=== PATIENT | female | born 1935 | race Asian ===

== ENCOUNTER 2021-11-22 14:42 | Outpatient (REF) | payer OTHER, MEDICAID, SELFPAY ==
--- NOTE | 2021-11-27 09:57 | MHC.AU.ANH ---
Adult Audiological Evaluation Date of Visit: 11/22/21 Reason for Appointment: History of hearing loss. Patient questions if there has been a change in hearing. She has been using a pair of Phonak Bolero [id number] obtained from another clinic. Medical History: Medical History: History of breast cancer, hypertension Otoscopy: Right Ear: Unremarkable Left Ear: Unremarkable Tympanometry: Tympanometry performed due to: To assess integrity of the middle ear system Right Ear: Normal Middle Ear System (Type A) Left Ear: Normal Middle Ear System (Type A) Hearing Evaluation: Transducer(s) Used: Insert Earphones Method: Conventional Audiometry Stimuli Used: Pure Tones Right Ear: Description of Hearing: Moderate to severe sensorineural hearing loss Left Ear: Description of Hearing: Moderate to severe sensorineural hearing loss Speech Detection Threshold (SDT): Right Ear: 50 dBHL Left Ear: 50 dBHL Speech Recognition Threshold (SRT): Could not test- language barrier Word Discrimination: Could not test- language barrier Recommendations: Audiological re-evaluation in one year. At this time, the patient's hearing aid benefits cannot be used at our clinic. It is recommended they call the insurance provider to find participating clinics in the area. Diagnosis: Primary Diagnosis: H90.3 Bilateral Sensorineural Hearing Loss Signature: Provider: Celina Garcia, CCC-A
== END 2021-11-22 14:43 | disposition home or self-care (01) ==
LOC: HO.SH 14:42
PROVIDERS: Visit Provider Internal Medicine
DX: Z01.118 Encounter for examination of ears and hearing with other abnormal findings (principal); H90.3 Sensorineural hearing loss, bilateral
CPT/HCPCS: 92553; 92555; 92567

== ENCOUNTER 2023-08-28 15:52 | Inpatient (IN) | payer OTHER, SELFPAY ==
--- NOTE | ~2023-08-28 | XR_ITS ---
EXAMINATION: XR CHEST CLINICAL INFORMATION: Cough COMPARISON: Previous chest x-ray 08/28/2023 TECHNIQUE: Frontal view of the chest was obtained. FINDINGS: The cardiac and mediastinal contours are stable. The right hemidiaphragm is elevated similar to prior exams. There are increased central bronchovascular markings questionable for airways disease versus mild pulmonary edema. No lobar pneumonia. No pleural effusion or pneumothorax. Surgical clips in the right lateral breast/axilla. XR/XR chest 1V IMPRESSION: Increased central bronchovascular markings questionable for airways disease versus mild pulmonary edema.
--- NOTE | ~2023-08-28 | XR_ITS ---
EXAMINATION: XR CHEST CLINICAL INFORMATION: Shortness of breath COMPARISON: Chest x-ray March 22, 2017. CT chest March 23, 2017 TECHNIQUE: Frontal portable view of the chest was obtained. 1740 hours FINDINGS: Lung volume low causing prominence of the bronchovascular markings. No focal consolidation. No pleural effusion or pneumothorax. Heart size is normal. There are calcifications of aorta. Surgical clips in the right axilla. Multilevel degenerative spondylosis spine. XR/XR chest 1V IMPRESSION: Low lung volume. No acute abnormality of chest.
[2023-08-28 16:02] VITALS: BP 100/75; BP 120/69; PULSE 80; PULSE 86; RESP 28; TEMP 36.9; O2SAT 97; O2SAT 99
[2023-08-28 16:17] VITALS: BP 100/75; PULSE 70; RESP 28; TEMP 37.1; O2SAT 97
--- NOTE | 2023-08-28 16:55 | ECG_ITS ---
Test Reason : SOB Blood Pressure : / mmHG Vent. Rate : 080 BPM Atrial Rate : 080 BPM P-R Int : 128 ms QRS Dur : 062 ms QT Int : 362 ms P-R-T Axes : 014 038 007 degrees QTc Int : 417 ms Normal sinus rhythm Nonspecific T wave abnormality Abnormal ECG When compared with ECG of 22-MAR-2017 19:59, Nonspecific T wave abnormality now evident in Anterior leads Referred By: Ant Howell Electronically Signed By:Alon Gore
--- NOTE | 2023-08-28 16:59 | PC.NURSE ---
Pt presents for wheezing and productive cough x5 days. Pt was seen at PCP ([facility]) earlier today and sent to ED for noted O2 sats at 88-92 % on RA. Presents with audible wheezing and productive cough. O2 sat stable at 97% on 2L O2. Afebrile and BP/P is stable. Pt is Italian speaking only with family at beside. Pt is stable at this time and awaiting disposition.
[2023-08-28] MEDS: Albuterol Sulfate 2.5 MG, Albuterol/Iprat 2.5/0.5MG 3 ML 3 ML INHALE ×2 (17:14→19:31)
[2023-08-28 17:16] VITALS: PULSE 76; RESP 26; O2SAT 97
[2023-08-28 17:18] LABS: MANUAL DIFF FLAG NO
[2023-08-28 17:25] LABS: Basophils Percent Auto 0.5 % (0-2); Eosinophils Absolute Auto 0.1 X10*3/uL (0.0-0.4); Eosinophils Percent Auto 0.9 % (0-4); Hematocrit 48.4 % (37.0-47.0); Hemoglobin 15.8 g/dl (12.0-16.0); Imm Gran Abs Auto 0.01 X10*3/uL (0.00-0.03); Imm Gran Pct Auto 0.1 % (0.0-0.4); Lymphocytes Absolute Auto 3.2 X10*3/uL (1.2-4.9); Lymphocytes Percent Auto 41.5 % (20-40); Mean Corpuscular HGB Conc 32.6 g/dl (31.0-35.0); Mean Corpuscular Hemoglobin 26.1 pg (27.0-33.0); Mean Corpuscular Volume 79.9 fL (80.0-98.0); Mean Platelet Volume 8.7 fL (9.4-12.3); Monocytes Absolute Auto 0.9 X10*3/uL (0.1-1.2); Monocytes Percent Auto 11.6 % (2-11); Neutrophils Absolute Auto 3.5 x10*3/uL (2.0-8.3); Neutrophils Percent Auto 45.4 % (45-73); Platelet Count 229 X10*3/uL (160-400); Red Blood Count 6.06 X10*6/uL (4.20-5.50); Red Cell Distribution Width 14.1 % (11.0-16.0); White Blood Count 7.7 X10*3/uL (4.8-10.8)
--- NOTE | 2023-08-28 17:28 | ED.URI ---
HPI - URI/Sore Throat General Chief Complaint: Upper Respiratory Symptoms Stated Complaint: respiratory symptoms x 5 days Time Seen by Provider: 08/28/23 16:23 Source: patient and family Mode of arrival: EMS Limitations: no limitations History of Present Illness ED Provider: andrew COLLADO Narrative: Patient with history of recurrent bronchitis with history of dementia hyperlipidemia hypertension no history of CHF a week of shortness a breath with dry cough and wheezing no fever no chills tested for COVID at home yesterday negative no fever no chills patient was seen by PCP saturating 88-92% at room air Related Data Home Medications ?Medication ?Instructions ?Recorded ?Confirmed cholecalciferol (vitamin D3) 50 50 mcg PO DAILY 08/28/23 08/28/23 mcg (2,000 unit) capsule folic acid 1 mg tablet 1 mg PO DAILY 08/28/23 08/28/23 lisinopril 10 mg tablet 10 mg PO DAILY 08/28/23 08/28/23 pravastatin 10 mg tablet 10 mg PO DAILY 08/28/23 08/28/23 Allergies Allergy/AdvReac Type Severity Reaction Status Date / Time No Known Allergies Allergy Verified 08/28/23 16:14 [No Known Allergies*] Review of Systems Review of Systems: Yes all other systems are reviewed and are negative PMFSH Past Medical History Medical History Dementia Osteoarthritis Hyperlipidemia Hypertension History of breast cancer Bronchitis, mucopurulent recurrent Iron deficiency anemia Social History Social History Smoked in Last 30 Days: No Use of substances other than those prescribed or required for medical reasons: No Advance Directives: No Advance Directives Information Provided: No Do you have a plan to hurt others: No Plan Physical Exam Vital Signs: Vital Signs: Last Vital Signs Temp 97.3 F 08/29/23 00:11 Pulse 68 08/29/23 00:27 Resp 16 08/29/23 00:27 BP 119/59 L 08/29/23 00:11 Pulse Ox 96 08/29/23 00:11 O2 Del Method Nasal Cannula 08/29/23 00:11 O2 Flow Rate 2 08/29/23 00:11 Oxygen Flow Rate 2 08/28/23 16:17 BMI result Body Mass Index 0.0 Appearance: Alert. Oriented X3. No acute distress. Eyes: No pallor or icterus ENT: Pharynx normal. Oral Mucosa moist Neck: Normal inspection. Neck supple. CVS: Normal heart rate and rhythm. Pulses normal. Respiratory: No respiratory distress. Equal air entry bilateral, bilateral obvious wheezing no crackles Abdomen: Soft and nontender. Bowel sounds are present, no mass palpable, no CVA tenderness Skin: Skin warm and dry. Normal skin color. Normal skin turgor. Extremities: No lower extremity edema. No calf tenderness Neuro: Oriented X 3. Medications Administered Generic Name Dose Route Start Last Admin Trade Name Freq PRN Reason Stop Dose Admin Albuterol/Ipratropium 3 ml 08/28/23 21:25 08/29/23 00:27 Albuterol/Iprat 2.5/0.5mg 3 Ml Ampul.Neb INHALE 3 ml Q4H PRN Administration Wheezing Enoxaparin Sodium 40 mg 08/28/23 21:30 08/28/23 23:56 Enoxaparin Sodium 40 Mg/0.4 Ml Syringe SUBCUT 40 mg Q24H SUN Administration Discontinued Medications Generic Name Dose Route Start Last Admin Trade Name Freq PRN Reason Stop Dose Admin Albuterol Sulfate 2.5 mg/ 0 mg 08/28/23 16:58 08/28/23 17:14 Albuterol/Ipratropium 3 ml INHALE 08/28/23 16:59 2 dose ONCE ONE Administration Albuterol Sulfate 2.5 mg/ 0 mg 08/28/23 19:28 08/28/23 19:31 Albuterol/Ipratropium 3 ml INHALE 08/28/23 19:29 5 dose ONCE ONE Administration Methylprednisolone Sodium Succinate 125 mg 08/28/23 16:59 08/28/23 17:42 Methylprednisolone Sod Succ 125 Mg/2 Ml Vial IVPUSH 08/28/23 17:00 125 mg ONCE ONE Administration Medical Decision Making Medical Decision Making [facility] Narrative: Patient has recurrent asthmatic bronchitis without any chronic lung condition unknown agent to cause the shortness of breath this time cardiac workup negative no signs of CHF patient responded to nebulizing treatment with still wheezing will admit the patient for supportive treatment Differential Diagnosis Differential Diagnoses: The differential diagnosis associated with the presentation includes Pneumonia/bronchitis/allergic bronchitis/reactive airway disease Admission/Observation Consideration of admission/observation: Escalation of care including admission/observation considered Consult Healthcare Provider Management of the patient was discussed with: Hospitalist Lab Data MDM Lab Attestation statement: I reviewed the patient's lab results. 08/28/23 17:13 08/28/23 17:13 Labs: Lab Results 08/28/23 08/28/23 08/28/23 Range/Units 17:13 21:16 21:22 WBC 7.7 (4.8-10.8) X10*3/uL RBC 6.06 H (4.20-5.50) X10*6/uL Hgb 15.8 (12.0-16.0) g/dl Hct 48.4 H (37.0-47.0) % MCV 79.9 L (80.0-98.0) fL MCH 26.1 L (27.0-33.0) pg MCHC 32.6 (31.0-35.0) g/dl RDW 14.1 (11.0-16.0) % Plt Count 229 (160-400) X10*3/uL MPV 8.7 L (9.4-12.3) fL Immature Gran % (Auto) 0.1 (0.0-0.4) % Neut % (Auto) 45.4 (45-73) % Lymph % (Auto) 41.5 H (20-40) % [place] % (Auto) 11.6 H (2-11) % Eos % (Auto) 0.9 (0-4) % Baso % (Auto) 0.5 (0-2) % Lymph # (Auto) 3.2 (1.2-4.9) X10*3/uL [place] # (Auto) 0.9 (0.1-1.2) X10*3/uL Eos # (Auto) 0.1 (0.0-0.4) X10*3/uL Baso # (Auto) 0.0 (0.0-0.2) X10*3/uL Abs Immat Gran (auto) 0.01 (0.00-0.03) X10*3/uL Absolute Neuts (auto) 3.5 (2.0-8.3) x10*3/uL Absolute Nucleated RBC 0.000 (0.0-0.012) X10*3/uL Nucleated RBC % (auto) 0.0 (0.0-0.2) /100WBC VBG pH 7.36 (7.32-7.43) VBG pCO2 39 mmHg VBG pO2 78 mmHg VBG HCO3 22 (22-26) mmol/L VBG O2 Saturation 98.0 % VBG Base Excess -2.7 mmol/L Sodium 138 (135-145) mmol/L Potassium 4.5 (3.3-5.1) mmol/L Chloride 104 (96-108) mmol/L Carbon Dioxide 24 (22-29) mmol/L Anion Gap 15 (12-20) BUN 19 H (9-16) mg/dL Creatinine 0.89 (0.5-1.4) mg/dL Estim Creat Clear Calc 36.9 Estimated GFR 60 Random Glucose 95 (60-115) mg/dL Lactic Acid 1.6 (0.5-2.0) mmol/L Calcium 8.8 (8.4-10.2) mg/dL Magnesium 2.1 (1.6-2.6) mg/dL Total Bilirubin 0.4 (0.0-1.0) mg/dL AST 26 (5-31) U/L ALT 13 (0-31) U/L Alkaline Phosphatase 61 (39-117) U/L Troponin I High Sens < 2.7 (<3.5-17.0) ng/L B-Natriuretic Peptide 27 (<100) pg/mL Total Protein 6.8 (6.5-8.0) g/dL Albumin 3.7 (3.5-5.0) g/dL Influenza Type A (PCR) NEGATIVE (Negative) Influenza Type B (PCR) NEGATIVE (Negative) RSV RNA Qual (PCR) NEGATIVE (Negative) SARS-CoV-2 RNA (RT-PCR) NEGATIVE (Negative) Independent Interpretation I performed an independent interpretation of an: EKG and Plain X-Ray Interpretation: Normal sinus rhythm heart rate 80 beats per minute normal intervals normal axis no acute ST-T changes no acute ischemia Radiology Impression Discussion of test interpretation with radiology: I have reviewed the radiologist's reading. Discharge Plan Discharge Clinical Impression: Severe persistent reactive airway disease with wheezing with acute exacerbation, Hypoxia Patient Disposition: Admitted As Inpatient
[2023-08-28 17:38] LABS: Alanine Aminotransferase 13 U/L (0-31); Albumin Level 3.7 g/dL (3.5-5.0); Alkaline Phosphatase 61 U/L (39-117); Anion Gap 15 (12-20); Aspartate Amino Transferase 26 U/L (5-31); Bilirubin Total 0.4 mg/dL (0.0-1.0); Blood Urea Nitrogen 19 mg/dL (9-16); Calcium 8.8 mg/dL (8.4-10.2); Carbon Dioxide 24 mmol/L (22-29); Chloride 104 mmol/L (96-108); Creatinine Clr Calc Pharmacy 36.9; Estimated Glomerular Filt Rate 60; Glucose Random 95 mg/dL (60-115); Magnesium 2.1 mg/dL (1.6-2.6); Potassium 4.5 mmol/L (3.3-5.1); Sodium 138 mmol/L (135-145); Total Protein 6.8 g/dL (6.5-8.0)
[2023-08-28 17:41] LABS: B Type Natriuretic Peptide 27 pg/mL (<100)
[2023-08-28] MEDS: methylPREDNISolone Sod Succ 125 MG/2 ML VIAL IVPUSH (17:42)
[2023-08-28 17:46] LABS: Troponin-I High Sensitivity < 2.7 ng/L (<3.5-17.0)
--- NOTE | 2023-08-28 17:47 | PC.NURSE ---
Pt seen for CXR and IV Solu-Medrol given. Family at bedside with no questions at this time.
[2023-08-28 18:03] LABS: Influenza A PCR NEGATIVE (Negative); Influenza B PCR NEGATIVE (Negative); Resp Syncy Virus RNA Qual PCR NEGATIVE (Negative); SARS COV2 PCR INHOUSE NEGATIVE (Negative)
[2023-08-28 18:31] VITALS: PULSE 87; RESP 23; O2SAT 96
[2023-08-28 19:22] VITALS: BP 120/44; PULSE 83; RESP 27; TEMP 36.9; O2SAT 96
[2023-08-28 19:32] VITALS: PULSE 77; RESP 27; O2SAT 95
--- NOTE | 2023-08-28 19:33 | PC.NURSE ---
pt is axox4 family translating, pt denies pain at this time. wheezing ausc bilat lobes throughout, RT at bedside for breathing tx. sats 96% on 2L NC. nsr on monitor. vss. pt tolerating po intake requested water and crackers. call bradley within reach.
--- NOTE | 2023-08-28 21:26 | P.HPHOSP_ITS ---
History of Present Illness Date of Service: 08/28/23 Chief Complaint: Dyspnea This is a 88-year-old female with pertinent history of breast cancer, hypertension, mixed hyperlipidemia who presents to the emergency department for evaluation of dyspnea. Patient states her symptoms started 1 week prior to presentation. Initially it started with runny nose and other symptoms of allergy . Soon patient started having nonproductive cough. Subsequently patient was noticed to have dyspnea on exertion and wheezing. Does not use home inhalers. No history of COPD or asthma. No history of smoking tobacco. Patient does not use oxygen at home. No fever, chills, chest discomfort, palpitations, abdominal pain, changes in urinary or bowel habits. In the emergency department, patient was requiring 2 L supplemental oxygen. Review of Systems 2 Constitutional: Constitutional: Reports fatigue and Reports malaise Cardiovascular: Cardiovascular: Reports dyspnea on exertion Respiratory: Respiratory: Reports cough, Reports dyspnea on exertion and Reports wheezing Gastrointestinal: Gastrointestinal: Reports no additional gastrointestinal complaints Genitourinary: Genitourinary: Reports no additional female genitourinary complaints Endocrine: Endocrine: Reports fatigue Allergic/Immunologic: Allergic/Immunologic: Reports wheezing [facility] Medical History Dementia Osteoarthritis Hyperlipidemia Hypertension History of breast cancer Bronchitis, mucopurulent recurrent Iron deficiency anemia Pertinent family history: No family history of early CAD Social History Smoked in Last 30 Days: No Use of substances other than those prescribed or required for medical reasons: No Advance Directives: No Advance Directives Information Provided: No Do you have a plan to hurt others: No Plan Meds Allergies Allergy/AdvReac Type Severity Reaction Status Date / Time No Known Allergies Allergy Verified 08/28/23 16:14 [No Known Allergies*] Home Medications ?Medication ?Instructions ?Recorded ?Confirmed ?Last Taken ?Type cholecalciferol (vitamin D3) 50 50 mcg PO DAILY 08/28/23 08/28/23 Unknown History mcg (2,000 unit) capsule ferrous gluconate 324 mg (38 mg 324 mg PO DAILY 08/28/23 08/28/23 Unknown History iron) tablet folic acid 1 mg tablet 1 mg PO DAILY 08/28/23 08/28/23 Unknown History lisinopril 10 mg tablet 10 mg PO DAILY 08/28/23 08/28/23 Unknown History pravastatin 10 mg tablet 10 mg PO DAILY 08/28/23 08/28/23 Unknown History Physical Exam 2 Vital Signs and Narrative: Vital Signs: Last Vital Signs Temp 98.4 F 08/28/23 19:22 Pulse 77 08/28/23 19:32 Resp 27 H 08/28/23 19:32 BP 120/44 L 08/28/23 19:22 Pulse Ox 96 08/28/23 19:22 O2 Del Method Room Air 08/28/23 19:22 O2 Flow Rate 2 08/28/23 18:31 Oxygen Flow Rate 2 08/28/23 16:17 BMI result Body Mass Index 0.0 Elderly female lying in bed in mild distress on supplemental oxygen Neck supple, no JVD Regular rate and rhythm, S1-S2 heard Bilateral wheezing appreciated Abdomen soft nontender, no guarding, no rigidity Patient is awake, alert and oriented to self, place, time and person ; no focal motor deficit Psych: Normal mood No pedal edema Results Labs 08/28/23 17:13 08/28/23 17:13 Labs: Laboratory Results - last 24 hr 08/28/23 17:13 MCV 79.9 L MCH 26.1 L MCHC 32.6 RDW 14.1 Plt Count 229 MPV 8.7 L Immature Gran % (Auto) 0.1 Neut % (Auto) 45.4 Lymph % (Auto) 41.5 H [place] % (Auto) 11.6 H Eos % (Auto) 0.9 Baso % (Auto) 0.5 Lymph # (Auto) 3.2 [place] # (Auto) 0.9 Eos # (Auto) 0.1 Baso # (Auto) 0.0 Abs Immat Gran (auto) 0.01 Absolute Neuts (auto) 3.5 Absolute Nucleated RBC 0.000 Nucleated RBC % (auto) 0.0 Anion Gap 15 Estim Creat Clear Calc 36.9 Estimated GFR 60 Random Glucose 95 Calcium 8.8 Magnesium 2.1 Total Bilirubin 0.4 AST 26 ALT 13 Alkaline Phosphatase 61 Troponin I High Sens < 2.7 B-Natriuretic Peptide 27 Total Protein 6.8 Albumin 3.7 Influenza Type A (PCR) NEGATIVE Influenza Type B (PCR) NEGATIVE RSV RNA Qual (PCR) NEGATIVE SARS-CoV-2 RNA (RT-PCR) NEGATIVE Imaging Radiologist's Impressions: Impressions Chest X-Ray 08/28/23 17:40 IMPRESSION: Low lung volume. No acute abnormality of chest. Assessment and Plan (1) Hypoxia: Status: Acute (2) Viral bronchitis: Status: Acute Plan This is a 88-year-old female with pertinent history of breast cancer, hypertension, mixed hyperlipidemia who presents to the emergency department for evaluation of dyspnea. #. Acute hypoxemic respiratory failure due to acute viral bronchitis: Will admit patient with supplemental oxygen. Sclerae and p.r.n. DuoNebs. Initiating systemic steroids. No sepsis. No indication for antibiotics as no concern for bacterial superinfection. #. Hypertension: Continue home antihypertensives #. Mixed hyperlipidemia: On statin Med rec pending DVT prophylaxis: Lovenox Full code. Discussed with family at bedside Admit as inpatient and will require two night minimum hospital stay for supplemental oxygen, IV steroids (as above), which is not possible in a lesser acute setting. Quality Stroke Does the patient have a stroke diagnosis?: No VTE Prior VTE?: No VTE Risk Level:: Medical - moderate - high VTE Device Contraindication: Treatment Not Indicated VTE Drug Contraindication: N/A - Med Ordered
[2023-08-28 21:29] LABS: VBG Base Excess -2.7 mmol/L; VBG HCO3 22 mmol/L (22-26); VBG pCO2 39 mmHg; VBG pH 7.36 (7.32-7.43); VBG pO2 78 mmHg
[2023-08-28 21:32] LABS: Venous Blood Gas Refer to POC result
[2023-08-28 21:33] LABS: Lactic Acid 1.6 mmol/L (0.5-2.0)
--- NOTE | 2023-08-28 23:54 | PC.NURSE ---
med rec done with patient and grandson. iron stopped by pcp today as patients labs were wnl per grandson.
[2023-08-28] MEDS: Enoxaparin Sodium 40 MG/0.4 ML SYRINGE SUBCUT (23:56)
[2023-08-29] VITALS (13 sets, daily range): BP systolic 113–144; BP diastolic 42–76; PULSE 60–76; RESP 15–18; TEMP 36.1–36.8; O2SAT 90–100; BMI 20.2
--- NOTE | 2023-08-29 00:18 | PC.NURSE ---
pt afebrile vss. expiratory wheezing ausc bilat lobes sats 96% on 2L NC, RT notified for prn breathing tx. pt found to be incontinent of urine, bed linen changed, andrew care provided. purewick provided. grandson at bedside to translate. pt pleasant, denies pain/cp/sob, resting comfortably in stretcher. awaiting bed assignment at this time. call bradley within reach.
[2023-08-29] MEDS: Albuterol/Iprat 2.5/0.5MG 3 ML AMPUL.NEB INHALE ×5 (00:27→19:39)
[2023-08-29 05:25] LABS: MANUAL DIFF FLAG NO
[2023-08-29 05:30] LABS: Hematocrit 46.8 % (37.0-47.0); Hemoglobin 15.7 g/dl (12.0-16.0); Imm Gran Abs Auto 0.01 X10*3/uL (0.00-0.03); Imm Gran Pct Auto 0.3 % (0.0-0.4); Lymphocytes Absolute Auto 0.8 X10*3/uL (1.2-4.9); Lymphocytes Percent Auto 21.9 % (20-40); Mean Corpuscular HGB Conc 33.5 g/dl (31.0-35.0); Mean Corpuscular Hemoglobin 26.5 pg (27.0-33.0); Mean Corpuscular Volume 79.1 fL (80.0-98.0); Mean Platelet Volume 8.7 fL (9.4-12.3); Monocytes Absolute Auto 0.1 X10*3/uL (0.1-1.2); Neutrophils Absolute Auto 2.7 x10*3/uL (2.0-8.3); Neutrophils Percent Auto 75.8 % (45-73); Platelet Count 220 X10*3/uL (160-400); Red Blood Count 5.92 X10*6/uL (4.20-5.50); White Blood Count 3.5 X10*3/uL (4.8-10.8)
[2023-08-29 05:44] LABS: Anion Gap 16 (12-20); Blood Urea Nitrogen 25 mg/dL (9-16); Calcium 9.4 mg/dL (8.4-10.2); Carbon Dioxide 20 mmol/L (22-29); Chloride 104 mmol/L (96-108); Creatinine Clr Calc Pharmacy 35.3; Estimated Glomerular Filt Rate 57; Glucose Random 196 mg/dL (60-115); Sodium 136 mmol/L (135-145)
--- NOTE | 2023-08-29 07:08 | PHA.MEDREC ---
Pharmacy Consult ? Medication Reconciliation Pharmacy has completed the medication reconciliation. Reviewed med rec done by nursing (Cody).
[2023-08-29] MEDS: methylPREDNISolone Sod Succ 40 MG/ML VIAL IVPUSH ×2 (08:54→20:08)
[2023-08-29] MEDS: Folic Acid 1 MG TABLET PO (08:55)
[2023-08-29] MEDS: Cholecalciferol (Vitamin D3) 25 MCG TABLET 50 MCG PO (08:55)
[2023-08-29] MEDS: lisinopriL 10 MG TABLET PO (08:55)
[2023-08-29] MEDS: Pravastatin Sodium 10 MG TABLET PO (08:55)
[2023-08-29] MEDS: 0.9 % Sodium Chloride Flush 3 ML SYRINGE IVFLUSH (08:56)
--- NOTE | 2023-08-29 10:29 | HO.PM.IMPN ---
Subjective Subjective Date of Service: 08/29/23 Interval History: Admitted for acute hypoxic respiratory failure. History obtain through grandson since patient speaks Gujarati. Complaining of cough productive of clear phlegm, shortness of breath, no fevers, no chills, had audible wheeze now resolved, on 2 L of oxygen. Review of Systems All other system reviewed and negative Physical Exam Vital Signs: Vital Signs: Last Vital Signs Temp 98.2 F 08/29/23 05:10 Pulse 61 08/29/23 07:52 Resp 17 08/29/23 07:52 BP 113/48 L 08/29/23 08:55 Pulse Ox 96 08/29/23 07:52 O2 Del Method Nasal Cannula 08/29/23 07:52 O2 Flow Rate 2 08/29/23 07:52 Oxygen Flow Rate 2 08/28/23 16:17 BMI result Body Mass Index 0.0 Const: Other: General awake alert interactive, coughing in no acute distress. Neck supple no JVD. CVS regular rate rhythm, Respiratory lungs clear to auscultation, no respiratory distress, no wheeze, no rhonchi. Gastrointestinal abdomen soft, non tender, bowel sounds audible. Extremities no edema. Neuro non focal Skin no rash Objective Data Active Medications Acetaminophen (Acetaminophen 325 Mg Tablet) 650 mg PO Q6H PRN PRN Reason: Pain, Mild (Pain Scale 1-3), fever or headache Albuterol/Ipratropium (Albuterol/Iprat 2.5/0.5mg 3 Ml Ampul.Neb) 3 ml INHALE RQ4H WHILE AWAKE SUN Last Admin: 08/29/23 07:39 Dose: 3 ml Documented By: ESTIVEN Albuterol/Ipratropium (Albuterol/Iprat 2.5/0.5mg 3 Ml Ampul.Neb) 3 ml INHALE Q4H PRN PRN Reason: Wheezing Last Admin: 08/29/23 00:27 Dose: 3 ml Documented By: DUC Benzonatate (Benzonatate 100 Mg Capsule) 100 mg PO TID PRN PRN Reason: Cough Calcium Carbonate (Calcium Carbonate 750 Mg Tab.Chew) 750 mg PO Q4H PRN PRN Reason: Heartburn Enoxaparin Sodium (Enoxaparin Sodium 40 Mg/0.4 Ml Syringe) 40 mg SUBCUT Q24H [facility] Last Admin: 08/28/23 23:56 Dose: 40 mg Documented By: FARNAZ Folic Acid (Folic Acid 1 Mg Tablet) 1 mg PO DAILY [facility] Last Admin: 08/29/23 08:55 Dose: 1 mg Documented By: ANGEL Lisinopril (Lisinopril 10 Mg Tablet) 10 mg PO DAILY [facility]; Protocol Last Admin: 08/29/23 08:55 Dose: 10 mg Documented By: ANGEL Magnesium Hydroxide (Milk Of Magnesia 30 Ml Oral.Susp) 30 ml PO DAILY PRN PRN Reason: Constipation Melatonin (Melatonin 3 Mg Tablet) 6 mg PO BEDTIME PRN PRN Reason: Insomnia Methylprednisolone Sodium Succinate (Methylprednisolone Sod Succ 40 Mg/Ml Vial) 40 mg IVPUSH Q12H [facility] Last Admin: 08/29/23 08:54 Dose: 40 mg Documented By: ANGEL Pravastatin Sodium (Pravastatin Sodium 10 Mg Tablet) 10 mg PO DAILY [facility] Last Admin: 08/29/23 08:55 Dose: 10 mg Documented By: ANGEL Sodium Chloride (0.9 % Sodium Chloride Flush 3 Ml Syringe) 3 ml IVFLUSH QSHIFT [facility] Last Admin: 08/29/23 08:56 Dose: 3 ml Documented By: ANGEL Vitamin D (Cholecalciferol (Vitamin D3) 25 Mcg Tablet) 50 mcg PO DAILY [facility] Last Admin: 08/29/23 08:55 Dose: 50 mcg Documented By: ANGEL Labs 08/29/23 05:05 08/29/23 05:05 Labs: Laboratory Results - last 24 hr 08/28/23 08/28/23 08/28/23 17:13 21:16 21:22 MCV 79.9 L MCH 26.1 L MCHC 32.6 RDW 14.1 Plt Count 229 MPV 8.7 L Immature Gran % (Auto) 0.1 Neut % (Auto) 45.4 Lymph % (Auto) 41.5 H [place] % (Auto) 11.6 H Eos % (Auto) 0.9 Baso % (Auto) 0.5 Lymph # (Auto) 3.2 [place] # (Auto) 0.9 Eos # (Auto) 0.1 Baso # (Auto) 0.0 Abs Immat Gran (auto) 0.01 Absolute Neuts (auto) 3.5 Absolute Nucleated RBC 0.000 Nucleated RBC % (auto) 0.0 VBG pH 7.36 VBG pCO2 39 VBG pO2 78 VBG HCO3 22 VBG O2 Saturation 98.0 VBG Base Excess -2.7 Anion Gap 15 Estim Creat Clear Calc 36.9 Estimated GFR 60 Random Glucose 95 Lactic Acid 1.6 Calcium 8.8 Magnesium 2.1 Total Bilirubin 0.4 AST 26 ALT 13 Alkaline Phosphatase 61 Troponin I High Sens < 2.7 B-Natriuretic Peptide 27 Total Protein 6.8 Albumin 3.7 Influenza Type A (PCR) NEGATIVE Influenza Type B (PCR) NEGATIVE RSV RNA Qual (PCR) NEGATIVE SARS-CoV-2 RNA (RT-PCR) NEGATIVE 08/29/23 05:05 MCV 79.1 L MCH 26.5 L MCHC 33.5 RDW 14.0 Plt Count 220 MPV 8.7 L Immature Gran % (Auto) 0.3 Neut % (Auto) 75.8 H Lymph % (Auto) 21.9 [place] % (Auto) 2.0 Eos % (Auto) 0.0 Baso % (Auto) 0.0 Lymph # (Auto) 0.8 L [place] # (Auto) 0.1 Eos # (Auto) 0.0 Baso # (Auto) 0.0 Abs Immat Gran (auto) 0.01 Absolute Neuts (auto) 2.7 Absolute Nucleated RBC 0.000 Nucleated RBC % (auto) 0.0 VBG pH VBG pCO2 VBG pO2 VBG HCO3 VBG O2 Saturation VBG Base Excess Anion Gap 16 Estim Creat Clear Calc 35.3 Estimated GFR 57 Random Glucose 196 H Lactic Acid Calcium 9.4 D Magnesium Total Bilirubin AST ALT Alkaline Phosphatase Troponin I High Sens B-Natriuretic Peptide Total Protein Albumin Influenza Type A (PCR) Influenza Type B (PCR) RSV RNA Qual (PCR) SARS-CoV-2 RNA (RT-PCR) Assessment and Plan (1) Severe persistent reactive airway disease with wheezing with acute exacerbation: Status: Acute (2) Hypoxia: Status: Acute (3) Viral bronchitis: Status: Acute Plan Severe persistent reactive airway disease with wheezing with acute exacerbation, Hypoxia 88-year-old female with pertinent history of breast cancer, hypertension, mixed hyperlipidemia who presents to the emergency department for evaluation of dyspnea. #. Acute hypoxemic respiratory failure due to acute severe reactive airway disease with wheezing likely due to acute viral bronchitis. Chest x-ray normal, no history of asthma or COPD Continue DuoNeb updraft scheduled and as needed, IV steroids Obtain respiratory viral pathogen panel Cough medication, hold antibiotics. #. Hypertension: Continue lisinopril 10 mg daily, stable BP #. Mixed hyperlipidemia: On pravastatin DVT prophylaxis: Lovenox Full code. Will need continued inpatient hospitalization for acute hypoxic respiratory failure. Quality Stroke Does the patient have a stroke diagnosis?: No VTE Prior VTE?: No VTE Risk Level:: Medical - moderate - high VTE Device Contraindication: Treatment Not Indicated VTE Drug Contraindication: N/A - Med Ordered
[2023-08-29 10:39] LABS: Adenovirus PCR Not Detected (Not Detect.); Bordetella parapertussis PCR Not Detected (Not Detect.); Bordetella pertussis PCR Not Detected (Not Detect.); Chlamydia pneumoniae PCR Not Detected (Not Detect.); Coronavirus 229E PCR Not Detected (Not Detect.); Coronavirus HKU1 PCR Not Detected (Not Detect.); Coronavirus NL63 PCR Not Detected (Not Detect.); Coronavirus OC43 PCR Not Detected (Not Detect.); Human metapneumovirus PCR Detected (Not Detect.); Influenza A PCR Not Detected (Not Detect.); Influenza B PCR Not Detected (Not Detect.); Mycoplasma pneumoniae PCR Not Detected (Not Detect.); Parainfluenza 1 PCR Not Detected (Not Detect.); Parainfluenza 2 PCR Not Detected (Not Detect.); Parainfluenza 3 PCR Not Detected (Not Detect.); Parainfluenza 4 PCR Not Detected (Not Detect.); RSV PCR Not Detected (Not Detect.); Rhino/Enterovirus PCR Not Detected (Not Detect.)
[2023-08-29 11:19] LABS: SARS-CoV-2 PCR Not Detected (Not Detect.)
[2023-08-29] MEDS: guaiFENesin DM 100/10/5 ML 5 ML SYRUP 10 ML PO ×2 (11:47→20:08)
--- NOTE | 2023-08-29 15:50 | MHC.CM.PN ---
CM MET WITH PTS [id number], AT BEDSIDE SHE REPORTS THE PT LIVES WITH HER AND HER AND SHE PROVIDES ANY CARE THE PT NEEDS THE PT IS USUALLY INDEPENDENT WITH AMBULATION AND MOST CARE SHE SAYS SHE THINKS THE PT HAS A HCP, COPY REQUESTED PCP: [facility] DELIVERED DCP: HOME, [facility] TO TRANSPORT
[2023-08-29] MEDS: Enoxaparin Sodium 40 MG/0.4 ML SYRINGE SUBCUT (20:07)
[2023-08-29] MEDS: Melatonin 3 MG TABLET 6 MG PO (20:08)
[2023-08-29] MEDS: Benzonatate 100 MG CAPSULE PO (20:08)
[2023-08-30] VITALS (9 sets, daily range): BP systolic 112–157; BP diastolic 55–74; PULSE 69–90; RESP 14–18; TEMP 36–36.4; O2SAT 90–98
--- NOTE | 2023-08-30 06:34 | PM.EVENT ---
Event Note Date of Service: 08/30/23 Event Note: Respiratory panel with positive human metapneumovirus. Will place contact isolation precautions Time Spent With Patient Time: Total time managing care of this patient today ____ minutes.
[2023-08-30] MEDS: Albuterol/Iprat 2.5/0.5MG 3 ML AMPUL.NEB INHALE ×4 (07:48→19:15)
[2023-08-30] MEDS: Cholecalciferol (Vitamin D3) 25 MCG TABLET 50 MCG PO (09:07)
[2023-08-30] MEDS: guaiFENesin DM 100/10/5 ML 5 ML SYRUP 10 ML PO ×3 (09:07→20:11)
[2023-08-30] MEDS: Folic Acid 1 MG TABLET PO (09:07)
[2023-08-30] MEDS: methylPREDNISolone Sod Succ 40 MG/ML VIAL IVPUSH ×3 (09:07→17:17)
[2023-08-30] MEDS: lisinopriL 10 MG TABLET PO (09:08)
[2023-08-30] MEDS: 0.9 % Sodium Chloride Flush 3 ML SYRINGE IVFLUSH ×3 (09:08→20:12)
--- NOTE | 2023-08-30 13:20 | P.PNIM_ITS ---
Subjective Subjective Date of Service: 08/30/23 Interval History: Per family; feels better but still wheezy Review of Systems Denies chest pain Admits shortness of breath and is improving Denies nausea vomiting diarrhea Denies fever chills Physical Exam 2 Vital Signs: Vital Signs: Last Vital Signs Temp 96.9 F 08/30/23 07:24 Pulse 69 08/30/23 11:33 Resp 16 08/30/23 11:33 BP 157/74 H 08/30/23 09:08 Pulse Ox 93 08/30/23 07:24 O2 Del Method Room Air 08/30/23 07:24 O2 Flow Rate 2 08/29/23 07:52 Oxygen Flow Rate 2 08/28/23 16:17 BMI result Body Mass Index 20.2 Const: Other: Awake alert no acute distress Resp: Other: Diminished at bases with scattered expiratory wheezes Cardio: Other: No S4; positive S1-S2; no S3 murmurs rubs or gallops GI: Other: Soft nontender nondistended normoactive bowel sounds Extrem: Other: No edema bilaterally Objective Data Active Medications Acetaminophen (Acetaminophen 325 Mg Tablet) 650 mg PO Q6H PRN PRN Reason: Pain, Mild (Pain Scale 1-3), fever or headache Albuterol/Ipratropium (Albuterol/Iprat 2.5/0.5mg 3 Ml Ampul.Neb) 3 ml INHALE RQ4H WHILE AWAKE [facility] Last Admin: 08/30/23 11:33 Dose: 3 ml Documented By: JERRY Albuterol/Ipratropium (Albuterol/Iprat 2.5/0.5mg 3 Ml Ampul.Neb) 3 ml INHALE Q4H PRN PRN Reason: Wheezing Last Admin: 08/29/23 00:27 Dose: 3 ml Documented By: DUC Benzonatate (Benzonatate 100 Mg Capsule) 100 mg PO TID PRN PRN Reason: Cough Last Admin: 08/29/23 20:08 Dose: 100 mg Documented By: ANETA Calcium Carbonate (Calcium Carbonate 750 Mg Tab.Chew) 750 mg PO Q4H PRN PRN Reason: Heartburn Enoxaparin Sodium (Enoxaparin Sodium 40 Mg/0.4 Ml Syringe) 40 mg SUBCUT Q24H [facility] Last Admin: 08/29/23 20:07 Dose: 40 mg Documented By: ANETA Folic Acid (Folic Acid 1 Mg Tablet) 1 mg PO DAILY [facility] Last Admin: 08/30/23 09:07 Dose: 1 mg Documented By: MARCELLUS Guaifenesin/Dextromethorphan (Guaifenesin Dm 100/10/5 Ml 5 Ml Syrup) 10 ml PO TID [facility] Last Admin: 08/30/23 09:07 Dose: 10 ml Documented By: MARCELLUS Lisinopril (Lisinopril 10 Mg Tablet) 10 mg PO DAILY [facility]; Protocol Last Admin: 08/30/23 09:08 Dose: 10 mg Documented By: MARCELLUS Magnesium Hydroxide (Milk Of Magnesia 30 Ml Oral.Susp) 30 ml PO DAILY PRN PRN Reason: Constipation Melatonin (Melatonin 3 Mg Tablet) 6 mg PO BEDTIME PRN PRN Reason: Insomnia Last Admin: 08/29/23 20:08 Dose: 6 mg Documented By: ANETA Methylprednisolone Sodium Succinate (Methylprednisolone Sod Succ 40 Mg/Ml Vial) 40 mg IVPUSH Q6H [facility] Last Admin: 08/30/23 12:18 Dose: 40 mg Documented By: MARCELLUS Pravastatin Sodium (Pravastatin Sodium 10 Mg Tablet) 10 mg PO BEDTIME [facility] Sodium Chloride (0.9 % Sodium Chloride Flush 3 Ml Syringe) 3 ml IVFLUSH QSHIFT [facility] Last Admin: 08/30/23 09:08 Dose: 3 ml Documented By: MARCELLUS Vitamin D (Cholecalciferol (Vitamin D3) 25 Mcg Tablet) 50 mcg PO DAILY [facility] Last Admin: 08/30/23 09:07 Dose: 50 mcg Documented By: MARCELLUS Labs 08/29/23 05:05 08/29/23 05:05 Microbiology Microbiology Results: Microbiology 08/28/23 23:14 Blood Culture - Preliminary Blood - Venous No growth after 24 hours. 08/28/23 21:31 Blood Culture - Preliminary Blood - Venous No growth after 24 hours. Assessment and Plan (1) Severe persistent reactive airway disease with wheezing with acute exacerbation: Status: Acute Plan 88-year-old female with pertinent history of breast cancer, hypertension, mixed hyperlipidemia who presents to the emergency department for evaluation of dyspnea. 1. Acute hypoxemic respiratory failure due to acute severe reactive airway disease with wheezing due to metapneumovir -increase Solu-Medrol to 40 mg q.6 hours -DuoNeb updraft scheduled and as needed 2.Hypertension -acceptable control on current therapies - Continue lisinopril 10 mg daily, stable BP Lovenox Full code. Requires ongoing hospitalization for IV therapy Quality Stroke Does the patient have a stroke diagnosis?: No VTE Prior VTE?: No VTE Risk Level:: Medical - moderate - high VTE Device Contraindication: Treatment Not Indicated VTE Drug Contraindication: N/A - Med Ordered
--- NOTE | 2023-08-30 14:56 | MHC.CM.PN ---
per rounds pt may be dcd today plan remains home no services
[2023-08-30] MEDS: Enoxaparin Sodium 40 MG/0.4 ML SYRINGE SUBCUT (20:11)
[2023-08-30] MEDS: Pravastatin Sodium 10 MG TABLET PO (20:11)
[2023-08-31] VITALS (8 sets, daily range): BP systolic 119–142; BP diastolic 56–64; PULSE 65–86; RESP 13–18; TEMP 36.1–36.7; O2SAT 93–97
[2023-08-31] MEDS: methylPREDNISolone Sod Succ 40 MG/ML VIAL IVPUSH ×2 (00:08→06:11)
[2023-08-31 07:01] LABS: Basophils Percent Auto 0.1 % (0-2); Hematocrit 46.2 % (37.0-47.0); Hemoglobin 15.7 g/dl (12.0-16.0); Imm Gran Abs Auto 0.17 X10*3/uL (0.00-0.03); Imm Gran Pct Auto 0.8 % (0.0-0.4); Lymphocytes Absolute Auto 0.9 X10*3/uL (1.2-4.9); Lymphocytes Percent Auto 4.1 % (20-40); MANUAL DIFF FLAG SCAN; Mean Corpuscular Hemoglobin 26.5 pg (27.0-33.0); Mean Corpuscular Volume 77.9 fL (80.0-98.0); Monocytes Absolute Auto 0.5 X10*3/uL (0.1-1.2); Monocytes Percent Auto 2.1 % (2-11); Neutrophils Absolute Auto 20.6 x10*3/uL (2.0-8.3); Neutrophils Percent Auto 92.9 % (45-73); Platelet Count 298 X10*3/uL (160-400); Red Blood Count 5.93 X10*6/uL (4.20-5.50); Red Cell Distribution Width 14.3 % (11.0-16.0); SCAN SMEAR FLAG 1; White Blood Count 22.2 X10*3/uL (4.8-10.8)
[2023-08-31 07:32] LABS: Alanine Aminotransferase 15 U/L (0-31); Albumin Level 3.5 g/dL (3.5-5.0); Alkaline Phosphatase 59 U/L (39-117); Anion Gap 15 (12-20); Aspartate Amino Transferase 20 U/L (5-31); Bilirubin Total 0.2 mg/dL (0.0-1.0); Blood Urea Nitrogen 33 mg/dL (9-16); Calcium 9.4 mg/dL (8.4-10.2); Carbon Dioxide 22 mmol/L (22-29); Chloride 103 mmol/L (96-108); Creatinine Clr Calc Pharmacy 38.2; Estimated Glomerular Filt Rate > 60; Glucose Fasting 139 mg/dL (60-99); Potassium 4.9 mmol/L (3.3-5.1); Sodium 135 mmol/L (135-145); Total Protein 6.3 g/dL (6.5-8.0)
[2023-08-31 07:35] LABS: SLIDE REVIEW VERIFIED
[2023-08-31] MEDS: Cholecalciferol (Vitamin D3) 25 MCG TABLET 50 MCG PO (08:38)
[2023-08-31] MEDS: guaiFENesin DM 100/10/5 ML 5 ML SYRUP 10 ML PO ×3 (08:39→20:40)
[2023-08-31] MEDS: 0.9 % Sodium Chloride Flush 3 ML SYRINGE IVFLUSH ×3 (08:39→20:42)
[2023-08-31] MEDS: Folic Acid 1 MG TABLET PO (08:39)
[2023-08-31] MEDS: lisinopriL 10 MG TABLET PO (08:39)
[2023-08-31] MEDS: Albuterol/Iprat 2.5/0.5MG 3 ML AMPUL.NEB INHALE ×3 (11:13→19:13)
--- NOTE | 2023-08-31 14:29 | P.PNIM_ITS ---
Subjective Subjective Date of Service: 08/31/23 Interval History: Through svp chief marketing officer (bunny) breathing improved with the addition of steroids. No acute issues overnight Review of Systems Denies chest pain Admits shortness of breath and is improving Denies nausea vomiting diarrhea Denies fever chills Physical Exam 2 Vital Signs: Vital Signs: Last Vital Signs Temp 97.0 F 08/31/23 07:50 Pulse 65 08/31/23 11:13 Resp 17 08/31/23 11:13 BP 142/63 H 08/31/23 08:39 Pulse Ox 93 08/31/23 07:50 O2 Del Method Nasal Cannula 08/31/23 07:50 O2 Flow Rate 2.0 08/31/23 07:50 Oxygen Flow Rate 2 08/28/23 16:17 BMI result Body Mass Index 20.2 Const: Other: Awake alert no acute distress Resp: Other: Diminished at bases with scattered expiratory wheezes Cardio: Other: No S4; positive S1-S2; no S3 murmurs rubs or gallops GI: Other: Soft nontender nondistended normoactive bowel sounds Extrem: Other: No edema bilaterally Objective Data Active Medications Acetaminophen (Acetaminophen 325 Mg Tablet) 650 mg PO Q6H PRN PRN Reason: Pain, Mild (Pain Scale 1-3), fever or headache Albuterol/Ipratropium (Albuterol/Iprat 2.5/0.5mg 3 Ml Ampul.Neb) 3 ml INHALE RQ4H WHILE AWAKE [facility] Last Admin: 08/31/23 11:13 Dose: 3 ml Documented By: GARTH Albuterol/Ipratropium (Albuterol/Iprat 2.5/0.5mg 3 Ml Ampul.Neb) 3 ml INHALE Q4H PRN PRN Reason: Wheezing Last Admin: 08/29/23 00:27 Dose: 3 ml Documented By: DUC Azithromycin (Azithromycin 500 Mg Tablet) 500 mg PO Q24H [facility] Stop: 09/04/23 14:31 Benzonatate (Benzonatate 100 Mg Capsule) 100 mg PO TID PRN PRN Reason: Cough Last Admin: 08/29/23 20:08 Dose: 100 mg Documented By: ANETA Calcium Carbonate (Calcium Carbonate 750 Mg Tab.Chew) 750 mg PO Q4H PRN PRN Reason: Heartburn Enoxaparin Sodium (Enoxaparin Sodium 40 Mg/0.4 Ml Syringe) 40 mg SUBCUT Q24H [facility] Last Admin: 08/30/23 20:11 Dose: 40 mg Documented By: TAMIR Folic Acid (Folic Acid 1 Mg Tablet) 1 mg PO DAILY [facility] Last Admin: 08/31/23 08:39 Dose: 1 mg Documented By: AMARA Guaifenesin/Dextromethorphan (Guaifenesin Dm 100/10/5 Ml 5 Ml Syrup) 10 ml PO TID [facility] Last Admin: 08/31/23 08:39 Dose: 10 ml Documented By: AMARA Lisinopril (Lisinopril 10 Mg Tablet) 10 mg PO DAILY [facility]; Protocol Last Admin: 08/31/23 08:39 Dose: 10 mg Documented By: AMARA Magnesium Hydroxide (Milk Of Magnesia 30 Ml Oral.Susp) 30 ml PO DAILY PRN PRN Reason: Constipation Melatonin (Melatonin 3 Mg Tablet) 6 mg PO BEDTIME PRN PRN Reason: Insomnia Last Admin: 08/29/23 20:08 Dose: 6 mg Documented By: ANETA Pravastatin Sodium (Pravastatin Sodium 10 Mg Tablet) 10 mg PO BEDTIME [facility] Last Admin: 08/30/23 20:11 Dose: 10 mg Documented By: TAMIR Sodium Chloride (0.9 % Sodium Chloride Flush 3 Ml Syringe) 3 ml IVFLUSH QSHIFT [facility] Last Admin: 08/31/23 08:39 Dose: 3 ml Documented By: AMARA Vitamin D (Cholecalciferol (Vitamin D3) 25 Mcg Tablet) 50 mcg PO DAILY [facility] Last Admin: 08/31/23 08:38 Dose: 50 mcg Documented By: AMARA Labs 08/31/23 05:38 08/31/23 05:38 Labs: Laboratory Results - last 24 hr 08/31/23 05:38 MCV 77.9 L MCH 26.5 L MCHC 34.0 RDW 14.3 Plt Count 298 D MPV 9.0 L Immature Gran % (Auto) 0.8 H Neut % (Auto) 92.9 H Lymph % (Auto) 4.1 L [place] % (Auto) 2.1 Eos % (Auto) 0.0 Baso % (Auto) 0.1 Lymph # (Auto) 0.9 L [place] # (Auto) 0.5 Eos # (Auto) 0.0 Baso # (Auto) 0.0 Abs Immat Gran (auto) 0.17 H Absolute Neuts (auto) 20.6 H Absolute Nucleated RBC 0.000 Nucleated RBC % (auto) 0.0 Smear Tech's Comments VERIFIED Anion Gap 15 Estim Creat Clear Calc 38.2 Estimated GFR > 60 Fasting Glucose 139 H Calcium 9.4 Total Bilirubin 0.2 AST 20 ALT 15 Alkaline Phosphatase 59 Total Protein 6.3 L Albumin 3.5 Microbiology Microbiology Results: Microbiology 08/28/23 23:14 Blood Culture - Preliminary Blood - Venous No growth after 48 hours. 08/28/23 21:31 Blood Culture - Preliminary Blood - Venous No growth after 48 hours. Assessment and Plan (1) Severe persistent reactive airway disease with wheezing with acute exacerbation: Status: Acute Plan 88-year-old female with pertinent history of breast cancer, hypertension, mixed hyperlipidemia who presents to the emergency department for evaluation of dyspnea. 1. Acute hypoxemic respiratory failure due to acute severe reactive airway disease with wheezing due to metapneumovir -will start oral prednisone in a.m.... Leukocytosis likely secondary to Solu- Medrol -add azithromycin for pleomorphic effect -DuoNeb updraft scheduled and as needed 2.Hypertension -acceptable control on current therapies - Continue lisinopril 10 mg daily, stable BP Lovenox Full code. Requires ongoing hospitalization for IV therapy Quality Stroke Does the patient have a stroke diagnosis?: No VTE Prior VTE?: No VTE Risk Level:: Medical - moderate - high VTE Device Contraindication: Treatment Not Indicated VTE Drug Contraindication: N/A - Med Ordered
[2023-08-31] MEDS: Azithromycin 500 MG TABLET PO (14:41)
[2023-08-31] MEDS: Melatonin 3 MG TABLET 6 MG PO (20:40)
[2023-08-31] MEDS: Pravastatin Sodium 10 MG TABLET PO (20:40)
[2023-08-31] MEDS: Enoxaparin Sodium 40 MG/0.4 ML SYRINGE SUBCUT (20:41)
[2023-09-01 03:14] VITALS: BP 148/66; PULSE 76; RESP 17; TEMP 36.4; O2SAT 94
[2023-09-01 05:57] LABS: MANUAL DIFF FLAG NO
[2023-09-01 06:05] LABS: Basophils Percent Auto 0.2 % (0-2); Hematocrit 45.8 % (37.0-47.0); Hemoglobin 15.3 g/dl (12.0-16.0); Imm Gran Abs Auto 0.19 X10*3/uL (0.00-0.03); Imm Gran Pct Auto 1.1 % (0.0-0.4); Lymphocytes Absolute Auto 1.4 X10*3/uL (1.2-4.9); Lymphocytes Percent Auto 7.8 % (20-40); Mean Corpuscular HGB Conc 33.4 g/dl (31.0-35.0); Mean Corpuscular Hemoglobin 26.2 pg (27.0-33.0); Mean Corpuscular Volume 78.6 fL (80.0-98.0); Mean Platelet Volume 9.1 fL (9.4-12.3); Monocytes Absolute Auto 1.2 X10*3/uL (0.1-1.2); Monocytes Percent Auto 6.7 % (2-11); Neutrophils Absolute Auto 14.9 x10*3/uL (2.0-8.3); Neutrophils Percent Auto 84.2 % (45-73); Platelet Count 271 X10*3/uL (160-400); Red Blood Count 5.83 X10*6/uL (4.20-5.50); Red Cell Distribution Width 14.3 % (11.0-16.0); White Blood Count 17.7 X10*3/uL (4.8-10.8)
[2023-09-01 06:27] LABS: Alanine Aminotransferase 19 U/L (0-31); Albumin Level 3.5 g/dL (3.5-5.0); Alkaline Phosphatase 55 U/L (39-117); Anion Gap 13 (12-20); Aspartate Amino Transferase 24 U/L (5-31); Bilirubin Total 0.3 mg/dL (0.0-1.0); Blood Urea Nitrogen 27 mg/dL (9-16); Calcium 9.1 mg/dL (8.4-10.2); Carbon Dioxide 25 mmol/L (22-29); Chloride 104 mmol/L (96-108); Creatinine Clr Calc Pharmacy 39.5; Estimated Glomerular Filt Rate > 60; Glucose Fasting 112 mg/dL (60-99); Potassium 4.8 mmol/L (3.3-5.1); Sodium 137 mmol/L (135-145); Total Protein 6.1 g/dL (6.5-8.0)
[2023-09-01 07:11] VITALS: PULSE 76; RESP 17; O2SAT 94
[2023-09-01] MEDS: Albuterol/Iprat 2.5/0.5MG 3 ML AMPUL.NEB INHALE ×2 (07:11→10:52)
[2023-09-01 07:15] VITALS: BP 143/65; PULSE 62; RESP 17; TEMP 36.6; O2SAT 98
[2023-09-01 08:06] VITALS: BP 143/65
[2023-09-01] MEDS: lisinopriL 10 MG TABLET PO (08:06)
[2023-09-01] MEDS: guaiFENesin DM 100/10/5 ML 5 ML SYRUP 10 ML PO (08:06)
[2023-09-01] MEDS: Folic Acid 1 MG TABLET PO (08:06)
[2023-09-01] MEDS: 0.9 % Sodium Chloride Flush 3 ML SYRINGE IVFLUSH (08:07)
[2023-09-01] MEDS: Cholecalciferol (Vitamin D3) 25 MCG TABLET 50 MCG PO (08:07)
[2023-09-01 10:52] VITALS: PULSE 62; RESP 17; O2SAT 94
--- NOTE | 2023-09-01 11:06 | P.DS_ITS ---
DS: Providers Provider Date of Service: 09/01/23 Date of admission: 08/28/23 21:25 Date of discharge: 09/01/23 Primary care physician: Susan Curtis NP DS: Diagnosis Discharge Diagnosis (1) Severe persistent reactive airway disease with wheezing with acute exacerbation: Status: Acute DS: Summary Hospital Course Hospital Course: 88-year-old female with pertinent history of breast cancer, hypertension, mixed hyperlipidemia who presents to the emergency department for evaluation of dyspnea. Patient states her symptoms started 1 week prior to presentation. Initially it started with runny nose and other symptoms of allergy . Soon patient started having nonproductive cough. Subsequently patient was noticed to have dyspnea on exertion and wheezing. Does not use home inhalers. No history of COPD or asthma. No history of smoking tobacco. Patient does not use oxygen at home. No fever, chills, chest discomfort, palpitations, abdominal pain, changes in urinary or bowel habits. In the emergency department, patient was requiring 2 L supplemental oxygen. Hospital Course Admitted to general medical floor; treated with IV steroids for presumed severe reactive airway disease with exacerbation. Respiratory panel ultimately showed human metapneumovirus. Patient had minimal improvement initially. Steroids were increased and azithromycin was added. Over the next 48 hours she would marked improvement with resolution of her O2 requirement. Of note she did have a leukemoid reaction to the steroids which was documented to be trending downward. At this point in time she will be discharged with a steroid taper and complete her course of oral azithromycin. She can follow up with PCP next available. Time Attestation Discharge Coordination Time (in mins): 35 Quality: Safe Use of Opioids Does Pt have an Active Cancer Diagnosis on the Problem List?: No Quality: Stroke Does the patient have a stroke diagnosis?: No Physical Exam Vital Signs: Vital Signs: Last Vital Signs Temp 98 F 09/01/23 07:15 Pulse 62 09/01/23 10:52 Resp 17 09/01/23 10:52 BP 143/65 H 09/01/23 08:06 Pulse Ox 98 09/01/23 07:15 O2 Del Method Room Air 09/01/23 07:15 O2 Flow Rate 2.0 08/31/23 07:50 Oxygen Flow Rate 2 08/28/23 16:17 BMI result Body Mass Index 20.2 Const: Other: Awake alert no acute distress Resp: Other: Clear to auscultation bilaterally. Resolution of expiratory wheezes noted Cardio: Other: No S4; positive S1-S2; no S3 murmurs rubs or gallops GI: Other: Soft nontender nondistended normoactive bowel sounds Extrem: Other: No edema bilaterally DS: Data Data Completed and Pending Labs on day of discharge: Laboratory Results - last 24 hr 09/01/23 05:39 WBC 17.7 H RBC 5.83 H Hgb 15.3 Hct 45.8 MCV 78.6 L MCH 26.2 L MCHC 33.4 RDW 14.3 Plt Count 271 MPV 9.1 L Immature Gran % (Auto) 1.1 H Neut % (Auto) 84.2 H Lymph % (Auto) 7.8 L [place] % (Auto) 6.7 Eos % (Auto) 0.0 Baso % (Auto) 0.2 Lymph # (Auto) 1.4 [place] # (Auto) 1.2 Eos # (Auto) 0.0 Baso # (Auto) 0.0 Abs Immat Gran (auto) 0.19 H Absolute Neuts (auto) 14.9 H Absolute Nucleated RBC 0.000 Nucleated RBC % (auto) 0.0 Sodium 137 Potassium 4.8 Chloride 104 Carbon Dioxide 25 Anion Gap 13 BUN 27 H Creatinine 0.83 Estim Creat Clear Calc 39.5 Estimated GFR > 60 Fasting Glucose 112 H Calcium 9.1 Total Bilirubin 0.3 AST 24 ALT 19 Alkaline Phosphatase 55 Total Protein 6.1 L Albumin 3.5 Preliminary micro results at discharge 08/28/23 23:14 Blood Culture - Preliminary Blood - Venous No growth after 48 hours. 08/28/23 21:31 Blood Culture - Preliminary Blood - Venous No growth after 48 hours. Discharge Plan Discharge Anticipated Discharge Date/Time: 09/01/23 11:00 Patient Disposition: Home Health Service Discharge Diagnosis: Reactive airway disease with exacerbation Referrals: Susan Curtis NP [Primary Care Provider] - 1 Week Discharge Medications: New azithromycin 500 mg Tablet 500 mg PO Q24H Qty: 3 0RF prednisone 20 mg tablet See Rx Instructions .Route .COMPLEX Qty: 18 0RF Rx Instructions: 20 mg orally; 3 tabs daily for 3 days, 2 tabs daily for 3 days, 1 tab daily for 3 days Continued pravastatin 10 mg tablet 10 mg PO DAILY lisinopril 10 mg tablet 10 mg PO DAILY folic acid 1 mg tablet 1 mg PO DAILY cholecalciferol (vitamin D3) 50 mcg (2,000 unit) capsule 50 mcg PO DAILY Discharge Orders: Discharge Order (Routine); Ordered 09/01/23 Ordered By: Darryl Mcmillan Diet: Advance to usual diet Activity on Discharge: As tolerated Stand Alone Forms: Patient Portal Discharge page Print Language: Dariela Care Plan Goals: Resume all medicines as taken prior to hospital Health Concerns: Encourage ambulation Plan of Treatment: Prednisone taper has been added .. Three tabs daily for 3 days, 2 tabs daily for 3 days, 1 tab daily for 3 days. Also azithromycin 500 mg 1 tab daily for 3 days. Follow up with PCP next available Assessment: See discharge summary
--- NOTE | 2023-09-01 11:12 | W.MHC.F2F ---
Service Date Service Date: 09/01/23 Encounter Date of encounter: 09/01/23 Encounter: Acute hospitalization Reasons for Services Signs and symptoms assessed: Assess respiratory status and oxygen saturation. Physical therapy for gait training and overall deconditioning Reason for [facility]: medication management and other (Monitor respiratory saturation and lung sounds) Reason for physical therapy: home safety and mobility and gait/transfer training Homebound: Leaving the home is medically contraindicated at this time without the asist of a device and/or another person due th the listed conditions above and below. Reason homebound: unsteady gait / fall risk and unable to drive Certification: Based on the above findings, I certify that this patient is confined to the home and needs intermittent [facility] care, physical therapy and/or speech therapy, or continues to need occupational therapy. The patient is under my care, and I have initiated the establishment of the plan of care. The patient will be followed by a physician who will periodically review the plan of care. Time Spent With Patient Time: Total time managing care of this patient today ____ minutes.
--- NOTE | 2023-09-01 11:49 | MHC.CM.PN ---
PT WILL DC HOME TODAY WITH RESUMPTION OF FAMILY CARE AND [facility]
[2023-09-01] MEDS: methylPREDNISolone Sod Succ 40 MG/ML VIAL IVPUSH (12:31)
[2023-09-01] MEDS: Azithromycin 500 MG TABLET PO (12:59)
== END 2023-09-01 13:16 | disposition home health service (06) | DRG 202 ==
LOC: HO.ED 17:07 → HO.EDOVER 21:39 → HO.S3 08-29 07:38
PROVIDERS: Hospitalist; Admitting Provider Student in an Organized Health Care Education/Training Program; Emergency Provider Internal Medicine; PCP Nurse Practitioner Family; Visit Provider Hospitalist
DX: J20.8 Acute bronchitis due to other specified organisms (principal); J96.01 Acute respiratory failure with hypoxia; J45.51 Severe persistent asthma with (acute) exacerbation; I10 Essential (primary) hypertension; E78.2 Mixed hyperlipidemia; B97.81 Human metapneumovirus as the cause of diseases classified elsewhere; Z85.3 Personal history of malignant neoplasm of breast; F03.90 Unspecified dementia, unspecified severity, without behavioral disturbance, psychotic disturbance, mood disturbance, and anxiety; D50.9 Iron deficiency anemia, unspecified; Z20.822 Contact with and (suspected) exposure to COVID-19; Z79.899 Other long term (current) drug therapy
CPT/HCPCS: 0241U; 36415; 71045; 80048; 80053; 82803; 83605; 83735; 83880; 84484; 85025; 87040; 87633; 92950; 93005; 94640; 99285; J1650; J2919

== ENCOUNTER → 2023-08-28 16:55 | Outpatient (BNV) | payer OTHER, SELFPAY | PROVIDERS: Admitting Provider Student in an Organized Health Care Education/Training Program; Emergency Provider Internal Medicine; PCP Nurse Practitioner Family; Visit Provider Internal Medicine Cardiovascular Disease | DX: R94.31 Abnormal electrocardiogram [ECG] [EKG] (principal) | CPT/HCPCS: 93010 ==

== ENCOUNTER → 2023-08-28 17:04 | Outpatient (BNV) | payer OTHER, MEDICAID, SELFPAY | PROVIDERS: Emergency Provider Internal Medicine; PCP Nurse Practitioner Family; Visit Provider Student in an Organized Health Care Education/Training Program | DX: R09.02 Hypoxemia (principal); J20.8 Acute bronchitis due to other specified organisms | CPT/HCPCS: 99222; 99232; 99239; G0180 ==